=== PATIENT | male | born 1955 | race Asian ===

== ENCOUNTER 2017-12-12 09:31 | Emergency (ER) | payer OTHER ==
[~2017-12-12] VITALS: Ht 165.1 cm; Wt 62.8 kg
[2017-12-12 10:20] VITALS: BP 122/79
== END 2017-12-12 10:20 | disposition home or self-care (01) ==
LOC: ED 09:31
DX: S50.861A Insect bite (nonvenomous) of right forearm, initial encounter (principal); I10 Essential (primary) hypertension; E11.9 Type 2 diabetes mellitus without complications; Z98.890 Other specified postprocedural states; Z86.79 Personal history of other diseases of the circulatory system; Z95.5 Presence of coronary angioplasty implant and graft; W57.XXXA Bitten or stung by nonvenomous insect and other nonvenomous arthropods, initial encounter; Y93.89 Activity, other specified; Y92.89 Other specified places as the place of occurrence of the external cause; Y99.8 Other external cause status
CPT/HCPCS: J7512

== ENCOUNTER 2017-12-30 10:19 | Emergency (ER) | payer OTHER ==
[~2017-12-30] VITALS: Ht 165.1 cm; Wt 58.0 kg
[2017-12-30 10:35] VITALS: Ht 165.1 cm; Wt 58.0 kg
[2017-12-30 14:12] VITALS: BP 134/74
== END 2017-12-30 14:12 | disposition home or self-care (01) ==
LOC: ED 10:19
DX: T78.49XA Other allergy, initial encounter (principal); I10 Essential (primary) hypertension; E11.9 Type 2 diabetes mellitus without complications; X58.XXXA Exposure to other specified factors, initial encounter

== ENCOUNTER 2018-02-04 12:22 | Emergency (ER) | payer OTHER ==
[~2018-02-04] VITALS: Ht 165.1 cm; Wt 64.9 kg
[2018-02-04 12:32] VITALS: BP 121/84; Ht 165.1 cm; Wt 64.9 kg
== END 2018-02-04 14:04 | disposition home or self-care (01) ==
LOC: ED 12:22
DX: T46.4X5A Adverse effect of angiotensin-converting-enzyme inhibitors, initial encounter (principal); T78.3XXA Angioneurotic edema, initial encounter; I10 Essential (primary) hypertension; E11.9 Type 2 diabetes mellitus without complications; Z95.1 Presence of aortocoronary bypass graft

== ENCOUNTER 2018-02-20 11:23 | Emergency (ER) | payer OTHER ==
[~2018-02-20] VITALS: Ht 165.1 cm; Wt 65.3 kg
[2018-02-20 11:37] VITALS: Ht 165.1 cm; Wt 65.3 kg
[2018-02-20 15:51] VITALS: BP 121/69
== END 2018-02-20 15:49 | disposition home or self-care (01) ==
LOC: ED 11:23
DX: L25.2 Unspecified contact dermatitis due to dyes (principal); I10 Essential (primary) hypertension; E11.9 Type 2 diabetes mellitus without complications; E78.00 Pure hypercholesterolemia, unspecified
CPT/HCPCS: J1200; J2930

== ENCOUNTER 2018-08-21 14:33 | Emergency (ER) | payer OTHER ==
[~2018-08-21] VITALS: Ht 165.1 cm; Wt 65.9 kg
[2018-08-21 14:44] VITALS: Ht 165.1 cm; Wt 65.9 kg
[2018-08-21 16:08] VITALS: BP 135/75
== END 2018-08-21 16:08 | disposition home or self-care (01) ==
LOC: ED 14:33
DX: T49.4X1A Poisoning by keratolytics, keratoplastics, and other hair treatment drugs and preparations, accidental (unintentional), initial encounter (principal); L23.5 Allergic contact dermatitis due to other chemical products; Y92.89 Other specified places as the place of occurrence of the external cause; E11.9 Type 2 diabetes mellitus without complications; E78.00 Pure hypercholesterolemia, unspecified; I10 Essential (primary) hypertension; Z98.61 Coronary angioplasty status
CPT/HCPCS: J2930; Q0163

== ENCOUNTER 2020-10-15 19:52 | Emergency (ER) | payer OTHER, SELFPAY ==
[~2020-10-15] VITALS: Ht 165.1 cm; Wt 60.8 kg
[2020-10-15 19:54] VITALS: Ht 165.1 cm; Wt 60.8 kg
[2020-10-15 21:15] VITALS: BP 107/71
== END 2020-10-15 21:09 | disposition home or self-care (01) ==
LOC: ED 19:52
DX: U07.1 COVID-19 (principal); I10 Essential (primary) hypertension; E11.9 Type 2 diabetes mellitus without complications
CPT/HCPCS: U0003